=== PATIENT | male | born 1955 | race Caucasian/White ===

== ENCOUNTER 2020-07-06 07:50 | Outpatient (CLI) | payer BC, SELFPAY ==
--- NOTE | ~2020-07-06 | NM_ITS ---
EXAMINATION: NM bone scan whole body DATE: 07/06/2020 11:34 INDICATION: Prostate cancer. TECHNIQUE: 25.4 mCi Tc-99m HDP was administered intravenously. Delayed whole-body scintigrams were o btained. COMPARISON: CT abdomen and pelvis 07/06/2020 FINDINGS: There is a total right hip arthroplasty. There is increased activity in distal right femur, patella, and proximal right tibia adjacent to the arthroplasty, which is nonspecific and may be norm al or may be a sign of loosening. There is joint-centered increased activity in the acromioclavicular joints, sternoclavicular joints, hands, left knee, and feet without radiographic comparison, likely osteoarthritis. IMPRESSION: 1. No evidence of metastatic disease. Reviewed, dictated and finalized at location B. 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
--- NOTE | ~2020-07-06 | CT_ITS ---
EXAMINATION: CT abdomen pelvis w con DATE: 07/06/2020 08:37 INDICATION: Prostate cancer. TECHNIQUE: Computed tomography (CT) of the abdomen and pelvis was performed with 100 mL Omnipaque 350 intravenous contrast. Automated exposure control and iterative reconstruction technique were employe d. The dose-length product was 804.48 mGy-cm. COMPARISON: None. FINDINGS: The visualized portions of the lung bases demonstrate mild atelectasis. No pleural effusion . The heart size is normal. No pericardial effusion. The liver, gallbladder, spleen, pancreas, and ad renal glands are normal. There are cysts in the kidneys measuring up to 12 mm on the right. The prost ate is moderately enlarged. There is a left inguinal hernia containing fat. There is diverticulosis o f the colon without evidence of diverticulitis. There are no dilated loops of bowel. The appendix is normal. There are no pathologically enlarged lymph nodes. There is no free intraperitoneal fluid. The re is severe lower lumbar spondylosis. There is mild chronic anterior wedging of T12 vertebral body. IMPRESSION: 1. No evidence of metastatic disease. 2. Left inguinal hernia containing fat. Reviewed, dictated and finalized at location D. 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
--- NOTE | ~2020-07-06 | XR_ITS ---
EXAMINATION: XR chest 2V DATE: 07/06/2020 08:13 INDICATION: Prostate cancer. TECHNIQUE: Frontal and lateral views of the chest were obtained. COMPARISON: CT abdomen and pelvis 07/06/2020 FINDINGS: The chest demonstrates clear lungs without pneumonia, pleural effusion, or pneumothorax. Th e heart size is normal. There is mild chronic anterior wedging of T12 vertebral body. IMPRESSION: 1. No acute cardiopulmonary disease. Reviewed, dictated and finalized at location D. CTOR OF COMPENSATION
[2020-07-06 08:37] LABS: Estimated Glomerular Filt Rate > 60
== END 2020-07-06 07:51 | disposition home or self-care (01) ==
LOC: ANHIMG 07:59
PROVIDERS: PCP Internal Medicine; Visit Provider Urology
DX: C61 Malignant neoplasm of prostate (principal); K40.90 Unilateral inguinal hernia, without obstruction or gangrene, not specified as recurrent
CPT/HCPCS: 71046; 74177; 78306; A9561; Q9967

== ENCOUNTER 2020-08-23 07:46 | Outpatient (CLI) | payer BC, SELFPAY ==
[2020-08-23 09:15] LABS: Basophils Absolute Auto 0.1 K/mm3 (0.0-0.1); Basophils Percent Auto 0.9 % (0.2-1.2); Eosinophils Absolute Auto 0.3 K/mm3 (0-0.3); Eosinophils Percent Auto 5.5 % (0-4.4); Hematocrit 41.8 % (42.0-52.0); Hemoglobin 14.2 g/dL (14.0-18.0); Immature Granulocyte Absolute 0.02 K/mm3 (0.00-0.031); Immature Granulocyte Percent A 0.3 % (0-0.5); Lymphocytes Absolute Auto 1.37 K/mm3 (0.9-3.2); Lymphocytes Percent Auto 23.7 % (18.3-44.2); Mean Corpuscular Hemoglobin 31.3 pg (26-34); Mean Corpuscular Volume 92.1 fl (80-100); Mean Platelet Volume 9.8 fl (7.4-10.4); Monocytes Absolute Auto 0.6 K/mm3 (0.1-0.6); Monocytes Percent Auto 9.5 % (2.6-8.5); Neutrophils Absolute Auto 3.5 K/mm3 (1.3-6.7); Neutrophils Percent Auto 60.1 % (45.5-73.1); Platelet Count Result 195 k/mm3 (150-375); Red Blood Count 4.54 M/mm3 (4.6-6.20); Red Cell Distribution Width 12.7 % (11.5-14.5); White Blood Count 5.8 K/mm3 (4.5-10.0)
[2020-08-23 09:18] LABS: Add Urine Microscopic? YES; Appearance Urine Clear (Clear); Bilirubin Urine Negative (Negative); Blood Urine Negative (Negative); Color Urine Yellow (Yellow); Glucose Urine UA Negative (Negative); Ketones Urine Negative (Negative); Leukocyte Esterase Ur Negative LEU/UL (Negative); Nitrate Urine Negative (Negative); Protein Urine Negative (Negative); RBC Urine 0-2 /hpf (0-2); Specific Grav Ur 1.019 (1.001-1.035); WBC Urine 0-3 /hpf
[2020-08-23 09:21] LABS: INR 0.9; Partial Thromboplastin Time 29.8 SECONDS (22.3-36.8); Prothrombin Time 12.9 Seconds (11.1-14.7)
[2020-08-23 09:25] LABS: Alanine Aminotransferase 21 U/L (4-50); Alkaline Phosphatase 64 U/L (38-126); Anion Gap 6 mmol/L (8-16); Aspartate Amino Transferase 23 U/L (17-59); Bilirubin,Total 2.1 mg/dL (0.2-1.3); Blood Urea Nitrogen 22 mg/dL (9-20); Calcium 8.7 mg/dL (8.4-10.2); Carbon Dioxide 31 mmol/L (22-30); Chloride 105 mmol/L (98-107); Estimated Glomerular Filt Rate > 60; Glucose 143 mg/dL (75-110); Potassium 4.5 mmol/L (3.4-5.0); Sodium 142 mmol/L (137-145)
== END 2020-08-23 07:47 | disposition home or self-care (01) ==
LOC: ANHSURGERY 07:48
PROVIDERS: PCP Internal Medicine; Visit Provider Urology
DX: C61 Malignant neoplasm of prostate (principal); Z01.818 Encounter for other preprocedural examination
CPT/HCPCS: 36415; 80053; 81001; 85025; 85610; 85730; 86850; 86900; 86901

== ENCOUNTER → 2020-08-28 00:58 | Outpatient (CLI) | payer BC, SELFPAY ==
[2020-08-28 18:32] LABS: SARS-CoV-2 RNA PCR Negative
== END ==
PROVIDERS: PCP Internal Medicine; Visit Provider Urology
DX: Z01.812 Encounter for preprocedural laboratory examination (principal); Z20.822 Contact with and (suspected) exposure to COVID-19
CPT/HCPCS: C9803; U0003; U0005

== ENCOUNTER 2020-08-30 00:32 | Day surgery (SDC) | payer BC, SELFPAY ==
--- NOTE | 2020-08-22 09:30 | P.HP_ITS ---
H&P: HPI History of Present Illness Date/Time: 08/22/20 09:30 Chief Complaint: Prostate cancer Narrative: Eric Hyde is a 64 year old male Recently referred with a PSA of 4.2. Prostate biopsy revealed 8 of 12 cores with [place] 6 and 3+4=[address] scan of the abdomen and pelvis, bone scan and chest x-ray were unremarkable. This represents an unfavorable intermediate risk prostate cancer. Prostate size was 46 g. After discussion of therapeutic options including radiation therapy in its various forms, radical prostatectomy, active surveillance and androgen deprivation he has elected for the surgical option. He is aware of the risks including, but not limited to, adverse cardiopulmonary events, rectal injury, erectile dysfunction and urinary incontinence Review of Systems Cardiovascular: Cardiovascular: Denies chest pain, Denies lightheadedness, Denies palpitations and Denies dyspnea Respiratory: Respiratory: Denies dyspnea Gastrointestinal: Gastrointestinal: Denies diarrhea, Denies nausea and Denies vomiting Genitourinary: Genitourinary: Denies hematuria and Denies dysuria Endocrine: Endocrine: Denies palpitations Exam Const: General: no acute distress Resp: Effort & Inspection: normal respiratory effort GI: Inspection: non-distended GI Palp: No abdominal tenderness and No Guarding due to palpation present (GI) Auscultation: normal bowel sounds Assessment and Plan Assessment and plan (1) Prostate cancer: Code(s): C61 - Malignant neoplasm of prostate Status: Acute Assessment and Plan: * Robotic assisted radical prostatectomy with bilateral pelvic lymphadenectomy
[2020-08-23 08:09] VITALS: BP 172/94; PULSE 60; RESP 20; TEMP 36.8; O2SAT 98; BMI 32.6
--- NOTE | 2020-08-29 09:31 | WPDANESEPPF ---
Anes - Initial Pre Proc Eval Procedure: Operation Date: 08/30/20 07:30 Proposed Procedures p Robotic Assisted Laparoscopic Prostatectomy, Possible Pelvic Lymph Node Dissection - Danish Xavier MD Date/Time: 08/29/20 09:31 Surgeon: Danish Xavier MD Pre Op Diagnosis: prostate CA Patient Data Age: 64 Gender: M Height: 1.85 m Weight: 112.3 kg Last Vital Signs Temp 36.8 C 08/23/20 08:09 Pulse 60 08/23/20 08:09 Resp 20 08/23/20 08:09 BP 172/94 H 08/23/20 08:09 Pulse Ox 98 08/23/20 08:09 Allergies Allergy/AdvReac Type Severity Reaction Status Date / Time No Known Allergies Allergy Verified 08/23/20 07:59 Home Medications Medication Instructions Recorded Confirmed Type atorvastatin 20 mg PO DAILY 08/23/20 08/30/20 History meloxicam 15 mg DAILY 08/23/20 08/30/20 History metformin 500 mg PO BID 08/23/20 08/30/20 History nebivolol [Bystolic] 10 mg QAM 08/23/20 08/30/20 History omeprazole 40 mg DAILY 08/23/20 08/30/20 History Patient hx anesthesia problems: none Family hx anesthesia problems: none PMFSH Past Medical History Medical History (Updated 08/29/20 @ 09:32 by Adriel Harden DO) Diabetes type 2, controlled GERD (gastroesophageal reflux disease) Hyperlipidemia Hypertension Osteoarthritis Prostate cancer Surgical History Surgical History (Updated 08/29/20 @ 09:32 by Adriel Harden DO) History of total knee replacement Social History Social History Smoking packs per day: 4 Smoking cigarettes per day: 80.0 Years smoked: 8 Smoking pack-years: 32.00 Smoking status: Former smoker Tobacco type: smokeless tobacco Smoking end date: 06/15/89 Additional smoking assessment comments: CHEWED FOR 40-45YRS QUIT 04/07/2020, NOW USES 4MG NICOTINE POUCHES Alcohol intake: current Drinks per week: 6 Substance use: never Substance use type: does not use Living arrangements: alone Spiritual care concerns: No Anes - Eval Final PreProcedure Day of Procedure 08/29/20 09:31 Patient weight: obese Heart: regular rate and rhythm Lungs: clear to auscultation and normal air movement Airway: Mallampati scale class II Neurological: alert and oriented Last oral intake: >/= 8 hours ASA classification: III Emergent: no Anesthetic plan: proceed Anesthesia type and monitoring: general ETT and standard monitoring Informed Consent: The patient's anesthetic plan and its attendant risks and benefits were discussed with the patient/family/POA. Questions were solicited and answers provided to the satisfaction of the patient/family/POA.
[2020-08-30] VITALS (14 sets, daily range): BP systolic 107–164; BP diastolic 61–93; PULSE 62–71; RESP 12–20; TEMP 36.1–36.7; O2SAT 94–99
--- NOTE | 2020-08-30 06:12 | WPDHPUPDATE1 ---
History and Physical Update Update Date/Time: 08/30/20 06:12 History and Physical has been reviewed, including an updated exam of the patient. There are NO changes in the patient's condition. Risks, benefits, and alternatives have been discussed and questions answered. Patient agrees to proceed with procedure.
[2020-08-30] MEDS: LACTATED RINGERS 1,000 ML 30 ML IV CONT ×2 (06:50→11:38)
[2020-08-30 07:03] LABS: Glucose Point of Care 171 (65-105)
[2020-08-30] MEDS: ceFAZolin 2 GM/D5W 50 ML 2 GM/50 ML BAG IVPB ×2 (07:31→11:47)
--- NOTE | 2020-08-30 09:43 | SUR.OPER ---
PATIENT REMAINS IN POSITION ON ROBOT PAD AND LEGS REMAIN IN POSITION BILATERAL.
--- NOTE | 2020-08-30 10:36 | SUR.OPER ---
patient maintains position. patient stated having neck issues with prior surgery in pre op and anesthesia aware. head remains in neutral position on pillow. patient denied and arm or hand pain or numbness in pre op.
--- NOTE | 2020-08-30 11:30 | PM.PROC ---
Procedure Note - Detailed Date of procedure: 08/30/20 Pre-op diagnosis: prostate CA Post-op diagnosis: same Procedure performed: Robotic-assisted radical prostatectomy and bilateral pelvic lymphadenectomy Description of procedure: The patient was brought to the operative suite, where he was prepped and draped in routine sterile fashion while in a dorsal lithotomy, deep Trendelenburg position. A supraumbilical 10 mm trocar was placed after insufflation of the abdomen with a Veress needle. Three robotic ports were then placed under direct vision. Two of these were placed in the right lower quadrant - 10 cm and 20 cm lateral to, and in line with, the umbilicus. A third robotic trocar was placed 10 cm to the left of the umbilicus, and 20 cm to the left of the umbilicus, a 12 mm standard laparoscopic trocar was placed to be used as an judicial administrative assistant port. Lastly, a 5 mm trocar was placed in the left upper quadrant midway between the umbilicus and the left robotic trocar. Attention was then turned to the prostatectomy. I opted for a posterior approach in this patient. An incision was made in the parietal peritoneum along the posterior bladder/posterior prostate about 2 cm above the reflection of the peritoneum over the anterior rectum. The seminal vesicles and vas deferens were immediately identified. Dissection is undertaken in a fashion so as to avoid electrocautery as much as possible, particularly near the tips of the seminal vesicles. Dissection was also carried out in the midline so as to avoid any encounters with the ureters. The vas deferens and the seminal vesicles were dissected in their entirety to the base of the prostate. The plane anterior to Denoviller's fascia, anterior to the rectum and posterior to the prostate was then developed. I then dropped the bladder by incising the anterior parietal peritoneum just lateral to the median umbilical ligaments bilaterally. The bladder was dropped from the anterior abdominal and pelvic wall. The endopelvic fascia was identified and incised bilaterally, allowing for dissection of the posterior-lateral aspect of the prostate. The puboprostatic ligaments were transected near their origin from the posterior pubic ramus. This posterior lateral dissection of the prostate is also undertaken in a fashion so as to avoid electrocautery as much as possible. The dorsal vein of the penis is then secured with an 0 -Vicryl ligature. Attention is then turned to the bladder neck. The anterior bladder neck is incised at the vesico-prostatic junction. The previously placed urethral catheter was drawn through the urethrotomy. A very small bladder neck was maintained throughout the remainder of this dissection. The posterior bladder neck was incised in a fashion so as to avoid any injury to the ureteral orifices. Again, the small aperture of the bladder neck was maintained. The previously dissected vas deferens and the seminal vesicles were brought through the posterior bladder neck incision. The lateral prostatic pedicles were then carefully dissected from the lateral aspect of the prostate bilaterally. The prostatic pedicles were secured with Weck clips and transected. The neurovascular bundles were carefully dissected from the posterior-lateral aspect of the prostate. The dorsal vein of the penis was incised with electrocautery. Using cold scissors, the urethra was incised. After withdrawing the previously placed urethral catheter, the posterior urethra was sharply incised, as was the rectalurethralis muscle. Attention was then turned to a bilateral pelvic lymphadenectomy. The limits of this dissection were similar bilaterally. Specifically, the limits were the bifurcation of the common iliac vein proximally, the inguinal ligament distally, the obturator nerve posteriorly and the anterior aspect to the external iliac vein laterally. This dissection was undertaken with care to avoid any injury to the obturator nerve. The prostat
[2020-08-30] MEDS: fentaNYL CITRATE INJ (*CRX) 100 MCG/2 ML VIAL 25 MCG IV PUSH ×8 (11:43→12:37)
[2020-08-30 12:00] LABS: Glucose Point of Care 215 (65-105)
--- NOTE | 2020-08-30 12:10 | SUR.PHASEI ---
1205 - Dr. Elaine called and aware of accucheck 215. no orders received at this time
--- NOTE | 2020-08-30 12:16 | SUR.PHASEI ---
1216 - dr. riddle at bedside
--- NOTE | 2020-08-30 13:35 | ADMGEN ---
This patient, Eric Hyde, was admitted to Medical Room 257-01. Patient/family oriented to hospital policies and general routines including ID bracelet, bed and alarms, visiting hours, pain management, procedures, bathroom and other care routines, personal items, smoking policy, room service/diet, and visiting hours. Information on how to activate the Rapid Response Team has been discussed. Patient/Family are encouraged to report perceived risks to care and to ask questions if they do not understand what they are told or what they should do.
[2020-08-30] MEDS: KETOROLAC 30 MG/ML VIAL (*BKC) IV PUSH ×2 (13:52→20:36)
[2020-08-30] MEDS: LACTATED RINGERS 1,000 ML 125 ML IV CONT ×2 (15:18→23:53)
[2020-08-30 17:58] LABS: Glucose Point of Care 169 (65-105)
[2020-08-30] MEDS: metFORMIN HCL 500 MG TABLET PO (18:37)
[2020-08-30] MEDS: PANTOPRAZOLE 40 MG TABLET PO (20:34)
[2020-08-30 20:46] LABS: Glucose Point of Care 227 (65-105)
--- NOTE | 2020-08-30 21:01 | PC.NURSE ---
2030 Dr. Xavier informed of patient bleeding at deanna drain site. informed of bloody urine per martinez. no new orders.
[2020-08-31 02:00] VITALS: BP 107/59; PULSE 58; RESP 20; TEMP 36.1; O2SAT 99
[2020-08-31 03:10] VITALS: BP 131/73; PULSE 60; RESP 18; TEMP 36.1; O2SAT 96
[2020-08-31 05:30] LABS: Hematocrit 32.5 % (42.0-52.0); Hemoglobin 11.2 g/dL (14.0-18.0)
[2020-08-31 05:47] LABS: Anion Gap 2 mmol/L (8-16); Blood Urea Nitrogen 19 mg/dL (9-20); Calcium 7.8 mg/dL (8.4-10.2); Carbon Dioxide 29 mmol/L (22-30); Chloride 103 mmol/L (98-107); Estimated CRCL calculation 86 ml/min; Estimated Glomerular Filt Rate > 60; Glucose 144 mg/dL (75-110); Sodium 134 mmol/L (137-145)
--- NOTE | 2020-08-31 06:58 | WPDUROPN2 ---
Progress Note: A&P Assessment and Plan (1) Prostate cancer: Code(s): C61 - Malignant neoplasm of prostate Status: Acute Assessment and Plan: Comfortable, tolerating diet Transient catheter clot with increase [place] drainage yesterday -> improved now. Increase diet/ambulation today. Anticipate discharge later today or tomorrow. Subjective Subjective Date/Time Seen: 08/31/20 06:58 Comfortable, tolerating diet Review of Systems Cardiovascular: Cardiovascular: Denies chest pain, Denies lightheadedness, Denies palpitations and Denies dyspnea Respiratory: Respiratory: Denies dyspnea Gastrointestinal: Gastrointestinal: Denies diarrhea, Denies nausea and Denies vomiting Genitourinary: Genitourinary: Denies hematuria and Denies dysuria Endocrine: Endocrine: Denies palpitations Exam Const: General: no acute distress Resp: Effort & Inspection: normal respiratory effort GI: Inspection: non-distended GI Palp: No abdominal tenderness and No Guarding due to palpation present (GI) Auscultation: normal bowel sounds Objective Data Vital Signs Vital Signs: Vital Signs - 24 hr 08/30/20 11:38 08/30/20 11:50 08/30/20 12:00 Temperature 98.0 F Pulse Rate 67 62 63 Respiratory Rate 12 14 18 Blood Pressure 164/81 H 157/93 H 141/83 H Pulse Oximetry 98 99 99 08/30/20 12:15 08/30/20 12:30 08/30/20 12:45 Temperature Pulse Rate 67 71 68 Respiratory Rate 14 20 12 Blood Pressure 128/76 128/75 125/72 Pulse Oximetry 99 97 95 08/30/20 13:00 08/30/20 13:15 08/30/20 13:35 Temperature Pulse Rate 62 64 Respiratory Rate 14 16 Blood Pressure 125/75 114/70 Pulse Oximetry 94 96 96 08/30/20 14:10 08/30/20 14:25 08/30/20 16:15 Temperature 96.9 F L 97.2 F L Pulse Rate 68 64 Respiratory Rate 18 18 Blood Pressure 115/67 107/68 Pulse Oximetry 98 98 96 08/30/20 23:10 08/31/20 02:00 Temperature 97.0 F L 97.0 F L Pulse Rate 69 58 L Respiratory Rate 18 20 Blood Pressure 108/61 107/59 L Pulse Oximetry 96 99 Intake/Output Intake/Output: Intake & Output 08/28/20 08/29/20 08/30/20 08/31/20 23:59 23:59 23:59 23:59 Intake Total 1950 200 Output Total 805 270 Balance 1145 -70 Meds/Results Medications: Active Medications Generic Name Dose Route Start Last Admin Trade Name Freq PRN Reason Stop Dose Admin Atorvastatin Calcium 20 mg 08/31/20 09:00 Atorvastatin 20 Mg Tablet PO DAILY SHEN Hyoscyamine 0.125 mg 08/30/20 13:25 Hyoscyamine Sulfate 0.125 Mg Tablet SUBLINGUAL Q4H PRN Bladder Spasm Lactated Ringer's 1,000 mls @ 125 mls/hr 08/30/20 13:25 08/30/20 23:53 Lr - Lactated Ringers Iv IV CONT 125 mls/hr .Q8H SHEN Administration Acetaminophen 1,000 mg in 100 mls @ 400 mls/hr 08/30/20 18:00 08/31/20 06:07 Ofirmev 1,000 Mg Ivpb IVPB 08/31/20 18:01 Infused Q6H SHEN Infusion Ketorolac Tromethamine 30 mg 08/30/20 13:25 08/30/20 20:36 Ketorolac 30 Mg/Ml Vial (*[facility]) IV PUSH 08/31/20 13:26 30 mg Q6H PRN Administration Pain Levofloxacin 500 mg 08/31/20 09:00 Levofloxacin Tab 500 Mg Tablet PO DAILY SHEN Meloxicam 15 mg 08/31/20 09:00 Meloxicam 7.5 Mg Tablet PO QAM SHEN Metformin HCl 500 mg 08/30/20 17:00 08/30/20 18:37 Metformin Hcl 500 Mg Tablet PO 500 mg BIDWM SHEN Administration Naloxone HCl 0.1 mg 08/30/20 13:25 Naloxone Hcl 0.4 Mg/Ml Vial IV PUSH Q2M PRN Opiate Reversal Nebivolol 10 mg 08/31/20 09:00 Nebivolol Hcl 5 Mg Tablet PO QAM SHEN Pantoprazole Sodium 40 mg 08/30/20 21:00 08/30/20 20:34 Pantoprazole 40 Mg Tablet PO 40 mg Q12HR SHEN Administration Labs Labs: Laboratory Results - last 24 hr 08/30/20 08/30/20 08/30/20 06:56 11:51 17:54 Hgb Hct Sodium Potassium Chloride Carbon Dioxide Anion Gap BUN Creatinine Estim Creat Clear Calc Estimated GFR Glucose POC Capillary Glucose 1
[2020-08-31 07:11] LABS: Glucose Point of Care 127 (65-105)
[2020-08-31 08:00] VITALS: BP 122/66; PULSE 72; RESP 16; TEMP 36.1; O2SAT 96
[2020-08-31] MEDS: metFORMIN HCL 500 MG TABLET PO (08:13)
[2020-08-31] MEDS: ATORVASTATIN 20 MG TABLET PO (08:13)
[2020-08-31 08:14] VITALS: PULSE 74
[2020-08-31] MEDS: PANTOPRAZOLE 40 MG TABLET PO (08:14)
[2020-08-31] MEDS: MELOXICAM 7.5 MG TABLET 15 MG PO (08:14)
[2020-08-31] MEDS: NEBIVOLOL HCL 5 MG TABLET 10 MG PO (08:14)
[2020-08-31] MEDS: LACTATED RINGERS 1,000 ML 125 ML IV CONT (08:17)
--- NOTE | 2020-08-31 09:47 | WPDANESPN ---
Anes - Prog Note Post-Op Date/Time: 08/31/20 09:47 Cardiovascular status: normal Respiratory status: normal Airway patency: baseline Mental status: baseline Post-Op hydration status: normal Vital Signs: Last Vital Signs Temp 36.1 C L 08/31/20 08:00 Pulse 74 08/31/20 08:14 Resp 16 08/31/20 08:00 BP 122/66 08/31/20 08:00 Pulse Ox 96 08/31/20 08:00 Pain Score (VAS): 4 I/O: Intake & Output 08/30/20 08/31/20 08/31/20 23:59 07:59 15:59 Intake Total 1600 1940 Output Total 610 1270 30 Balance 990 670 -30 Laboratory Tests 08/31/20 05:15 08/31/20 05:16 08/30/20 08/30/20 08/30/20 11:51 17:54 20:40 Hgb Hct Sodium Potassium Chloride Carbon Dioxide Anion Gap BUN Creatinine Estim Creat Clear Calc Estimated GFR Glucose POC Capillary Glucose 215 H 169 H 227 H Calcium 08/31/20 08/31/20 08/31/20 05:15 05:16 07:08 Hgb 11.2 L D Hct 32.5 L Sodium 134 L Potassium 4.0 Chloride 103 Carbon Dioxide 29 Anion Gap 2 L BUN 19 Creatinine 1.00 Estim Creat Clear Calc 86 Estimated GFR > 60 Glucose 144 H POC Capillary Glucose 127 H Calcium 7.8 L Post-procedural complaints: none Patient Feedback: Patient satisfied with anesthetic care.
[2020-08-31 11:13] LABS: Creatinine Urine < 3.2 mg/dL
--- NOTE | 2020-08-31 11:48 | PC.NURSE ---
Dr. Xavier on floor and removed J/P drain to RLQ.
--- NOTE | 2020-08-31 11:57 | PC.NURSE ---
Plan Nurse asked MD if acetaminophen can be changed to Po rather than IV MD okayed.
[2020-08-31 12:00] VITALS: BP 138/66; PULSE 85; RESP 18; O2SAT 98
[2020-08-31] MEDS: ACETAMINOPHEN 500 MG TABLET 1000 MG PO (12:15)
[2020-08-31 12:19] LABS: Glucose Point of Care 183 (65-105)
--- NOTE | 2020-08-31 13:30 | PM.DS ---
DS: Admitting Diagnosis Admitting Diagnosis Admitting Diagnosis: Prostate cancer DS: Discharge Diagnosis Discharge Diagnosis (1) Prostate cancer: Code(s): C61 - Malignant neoplasm of prostate Status: Acute DS: Summary Hospital Course Hospital Course: This patient was admitted on the morning of his planned robotic prostatectomy. This procedure was uneventful, as was his postoperative course. By the evening of the procedure he was sitting at the bedside in tolerating a liquid diet. The following morning he was ambulating freely and tolerating regular food. I had left a drain in overnight - output dropped-off significantly the following morning and chemistry of the fluid showed no sign of urine. The drain was removed. His catheter drainage remained essentially clear throughout. His postoperative hemoglobin and serum creatinine were unremarkable. At the time of discharge he has been instructed in appropriate care for his [place] catheter with both a leg bag and bedside bag. He will be discharged with plans to follow-up in 1 week with a cystogram. Time Spent with Patient Time attestation: Total time spent providing and/or coordinating discharge services: 30min Exam Const: General: no acute distress Resp: Effort & Inspection: normal respiratory effort GI: Inspection: non-distended GI Palp: No abdominal tenderness and No Guarding due to palpation present (GI) Auscultation: normal bowel sounds DS: Data Data Completed and Pending Pending studies at discharge: Pending at discharge 08/30/20 10:33 Surgical [PTH] Routine Surgical [PTH] Routine Surgical [PTH] Routine Labs on day of discharge: Labs from last 24 hours 08/31/20 08/31/20 08/31/20 12:14 10:31 07:08 Hgb Hct Sodium Potassium Chloride Carbon Dioxide Anion Gap BUN Creatinine Estim Creat Clear Calc Estimated GFR Glucose POC Capillary Glucose 183 H 127 H Calcium Urine Creatinine < 3.2 08/31/20 08/31/20 08/30/20 05:16 05:15 20:40 Hgb 11.2 L D Hct 32.5 L Sodium 134 L Potassium 4.0 Chloride 103 Carbon Dioxide 29 Anion Gap 2 L BUN 19 Creatinine 1.00 Estim Creat Clear Calc 86 Estimated GFR > 60 Glucose 144 H POC Capillary Glucose 227 H Calcium 7.8 L Urine Creatinine 08/30/20 17:54 Hgb Hct Sodium Potassium Chloride Carbon Dioxide Anion Gap BUN Creatinine Estim Creat Clear Calc Estimated GFR Glucose POC Capillary Glucose 169 H Calcium Urine Creatinine Discharge Plan Discharge Patient Disposition: Home, Self-Care Discharge Instructions: 1) [place] catheter -> leg bag / bedside bag at night. 2) No lifting/straining >15lbs. x3 weeks. 3) No driving x1-week. 4) Resume normal, pre-operative diet. 5) My office will contact regarding follow-up in 1-week with cystogram. Patient Instructions: Robot Assisted Laparoscopic Prostatectomy (DC) Stand Alone Forms: General Discharge Instructions Discharge Orders: Discharge Order (Routine); Ordered 08/31/20 Ordered By: Danish Xavier Discharge Medications: New hydrocodone-acetaminophen 5-325 mg tablet 1 - 2 tablet PO Q6H PRN (Reason: pain) Qty: 30 RF: 0 ciprofloxacin HCl 500 mg tablet 500 mg PO Q12H Qty: 10 RF: 0 docusate sodium [Colace] 100 mg capsule 100 mg PO DAILY Qty: 30 RF: 0 hyoscyamine sulfate 0.125 mg tablet 0.125 mg PO Q6H PRN (Reason: bladder spasms) Qty: 20 RF: 2 Continued metformin 500 mg Tablet 500 mg PO BID RF: 0 atorvastatin 20 mg Tablet 20 mg PO DAILY RF: 0 meloxicam 15 mg tablet 15 mg DAILY RF: 0 omeprazole 40 mg capsule,delayed release(DR/EC) 40 mg DAILY RF: 0 Bystolic 10 mg tablet 10 mg QAM RF: 0
== END 2020-08-31 14:15 | disposition home or self-care (01) ==
LOC: ANHSURGERY 06:12 → ANH2MED 13:32
PROVIDERS: PCP Internal Medicine; Visit Provider Urology
PROC: 0VT04ZZ Resection of Prostate, Percutaneous Endoscopic Approach (ICD-10-PCS; CPT 55867; principal; 2020-08-30 07:30)
DX: C61 Malignant neoplasm of prostate (principal); Z79.84 Long term (current) use of oral hypoglycemic drugs; K21.9 Gastro-esophageal reflux disease without esophagitis; E78.5 Hyperlipidemia, unspecified; I10 Essential (primary) hypertension; M19.90 Unspecified osteoarthritis, unspecified site; Z87.891 Personal history of nicotine dependence; E66.9 Obesity, unspecified; Z68.30 Body mass index [BMI] 30.0-30.9, adult; E11.9 Type 2 diabetes mellitus without complications
CPT/HCPCS: 55866; 38571; S2900; 36415; 80048; 82570; 82948; 85014; 85018; 88305; 88307; 88309; A9270; J0131; J0330; J0690; J1170; J1885; J2250; J2405; J2704; J2710; J3010; J7030; J7120; Q9968

== ENCOUNTER 2020-09-10 10:11 | Outpatient (CLI) | payer BC, SELFPAY ==
--- NOTE | ~2020-09-10 | XR_ITS ---
EXAMINATION: XR cystogram EXAM DATE: 09/10/2020 10:53 INDICATION: Prostatectomy for cancer, 11 days postop. TECHNIQUE: Fluoroscopy used during XR cystogram performed by Dr. Guilherme Santos. Total fluoroscopic t hillary of 0.3 minutes. A total of 43 images obtained for the exam. The DAP for this procedure was 47 mG ym2. No prior study. FINDINGS: Patient tolerated approximately 200 mL of contrast. The bladder has an elongated shape with posterior and lateral pockets. Patient's bladder was flushed twice with normal saline for the outpatient facility physical therapist ior back images, could not clear the contrast out of the pockets described. This is suspected to be d ue to the shape of the bladder. Contrast extravasation typically does not have [place] to extravasa [place] portion, and does not appear contained. I discussed these findings with Dr. Danish Xavier MD . IMPRESSION: Elongated bladder shape with posterior and lateral bladder pockets. No uncontained contra st/extravasation suspected. Reviewed, dictated and finalized at location A. IMPRESSION: Elongated bladder shape with posterior and lateral bladder pockets. No uncontained contrast/extravasation suspected.
== END 2020-09-10 10:12 | disposition home or self-care (01) ==
PROVIDERS: PCP Internal Medicine; Visit Provider Urology
DX: C61 Malignant neoplasm of prostate (principal)
CPT/HCPCS: 51600; 74430; Q9967